=== PATIENT | male | born 1970 | race Caucasian/White ===

== ENCOUNTER → 2022-03-22 | Outpatient (REF) | LOC: M PLAIMG 15:18 | PROVIDERS: ATTEND Internal Medicine | DX: Z11.52 Encounter for screening for COVID-19 (principal) ==

== ENCOUNTER → 2022-05-21 | Outpatient (CLI) | payer BC ==
[2022-05-21 15:55] LABS: BASO # 0.1 10^3/uL (0.0-0.2); BASO % 0.7 % (0.0-1.0); EOS # 0.2 10^3/uL (0.0-0.5); EOS % 2.8 % (0.0-3.0); HEMATOCRIT 45.9 % (42.0-52.0); HEMOGLOBIN 15.7 g/dl (13.5-17.5); LYMPH # 2.5 10^3/uL (1.5-5.0); MEAN CORPUSCULAR HEMOGLOBIN 32.4 pg (27.0-33.0); MEAN CORPUSCULAR HGB CONC 34.2 g/dl (32.0-36.5); MEAN CORPUSCULAR VOLUME 94.6 fl (80.0-96.0); MONO # 0.5 10^3/uL (0.0-0.8); MONO % 5.9 % (2.0-8.0); NEUTROPHILS % 60.2 % (36.0-66.0); PLATELET COUNT, AUTOMATED 174 10^3/uL (150-450); RED BLOOD COUNT 4.85 10^6/uL (4.30-6.10); WHITE BLOOD COUNT 8.3 10^3/uL (4.0-10.0)
[2022-05-21 16:19] LABS: URIC ACID 4.2 MG/DL (3.7-9.2)
[2022-05-21 16:21] LABS: CREATININE, URINE 136.9 MG/DL; MAU/CREAT RATIO 15.3 MCG/MG (0.0-30.0)
[2022-05-21 16:22] LABS: ALBUMIN 3.6 G/DL (3.2-5.2); ALKALINE PHOSPHATASE 120 U/L (46-116); ALT/SGPT 38 U/L (7.0-40); AST/SGOT 24 U/L (<34); BILIRUBIN,TOTAL 0.6 MG/DL (0.3-1.2); BLOOD UREA NITROGEN 14 MG/DL (9-23); CALCIUM LEVEL 9.1 MG/DL (8.5-10.1); CARBON DIOXIDE LEVEL 26 MMOL/L (20-31); CHLORIDE LEVEL 107 MMOL/L (98-107); CHOLESTEROL LEVEL 165 MG/DL (<200); CHOLESTEROL RISK RATIO 2.71 (<5); CREATININE FOR GFR 0.89 MG/DL (0.70-1.30); GLOMERULAR FILTRATION RATE > 60.0 (>56); GLUCOSE, FASTING 152 MG/DL (60-100); HDL CHOLESTEROL 60.8 MG/DL (>40); NON-HDL-C 104 MG/DL; POTASSIUM SERUM 4.2 MMOL/L (3.5-5.1); SODIUM LEVEL 140 MMOL/L (136-145); TRIGLYCERIDES LEVEL 171 MG/DL (<150)
[2022-05-21 16:24] LABS: THYROID STIMULATING HORMONE 1.701 uIU/ML (0.55-4.78)
== END ==
LOC: M LAB 15:04
PROVIDERS: ATTEND Family Medicine
DX: Z12.5 Encounter for screening for malignant neoplasm of prostate (principal); E11.8 Type 2 diabetes mellitus with unspecified complications; I10 Essential (primary) hypertension; E78.2 Mixed hyperlipidemia
CPT/HCPCS: 36415; 80053; 80061; 82043; 84443; 84550; 85025; G0103

== ENCOUNTER → 2023-02-14 | Outpatient (CLI) | payer BC | LOC: M PLALAB 11:34 | PROVIDERS: ATTEND Internal Medicine Hematology | DX: I82.90 Acute embolism and thrombosis of unspecified vein (principal) ==

== ENCOUNTER → 2023-05-03 | Outpatient (CLI) | payer BC | LOC: M CARPUL 10:41 | PROVIDERS: ATTEND Internal Medicine Critical Care Medicine | DX: I26.99 Other pulmonary embolism without acute cor pulmonale (principal) ==

== ENCOUNTER → 2023-05-03 | Outpatient (CLI) | payer BC | LOC: M RAD 10:47 | PROVIDERS: ATTEND Internal Medicine Critical Care Medicine | DX: I26.99 Other pulmonary embolism without acute cor pulmonale (principal) ==

== ENCOUNTER → 2024-01-25 | Outpatient (REF) | payer BC ==
[2024-01-25 04:34] LABS: CREATININE, URINE 59.5 MG/DL; MALB URINE SIEMENS < 3.0 MG/L
[2024-01-25 04:35] LABS: ALBUMIN 3.7 G/DL (3.2-5.2); BILIRUBIN,DIRECT 0.1 MG/DL (<0.4); BILIRUBIN,TOTAL 0.4 MG/DL (0.3-1.2); CHOLESTEROL RISK RATIO 3.37 (<5); HDL CHOLESTEROL 52.8 MG/DL (>40); LDL CHOLESTEROL 81.8 MG/DL (<100); NON-HDL-C 125.2 MG/DL; TOTAL PROTEIN 6.7 G/DL (5.7-8.2)
== END ==
LOC: M LAB REF 03:51
PROVIDERS: ATTEND Family Medicine
DX: E78.2 Mixed hyperlipidemia (principal); E11.69 Type 2 diabetes mellitus with other specified complication

== ENCOUNTER → 2024-07-02 | Outpatient (REF) | payer BC ==
[2024-07-02 04:39] LABS: BASO # 0.1 10^3/uL (0.0-0.2); BASO % 0.7 % (0.0-1.0); EOS # 0.1 10^3/uL (0.0-0.5); EOS % 1.2 % (0.0-3.0); HEMATOCRIT 45.5 % (42.0-52.0); HEMOGLOBIN 15.7 g/dl (13.5-17.5); LYMPH # 3.2 10^3/uL (1.5-5.0); MEAN CORPUSCULAR HEMOGLOBIN 32.4 pg (27.0-33.0); MEAN CORPUSCULAR HGB CONC 34.5 g/dl (32.0-36.5); MONO # 0.7 10^3/uL (0.0-0.8); MONO % 6.2 % (2.0-8.0); NEUTROPHILS # 6.6 10^3/uL (1.5-8.5); NEUTROPHILS % 61.5 % (36.0-66.0); PLATELET COUNT, AUTOMATED 204 10^3/uL (150-450); RED BLOOD COUNT 4.84 10^6/uL (4.30-6.10); WHITE BLOOD COUNT 10.7 10^3/uL (4.0-10.0)
[2024-07-02 05:08] LABS: URIC ACID 4.5 MG/DL (3.7-9.2)
[2024-07-02 05:11] LABS: CHOLESTEROL RISK RATIO 3.88 (<5); HDL CHOLESTEROL 47.9 MG/DL (>40); LDL CHOLESTEROL 82.1 MG/DL (<100); MAGNESIUM LEVEL 1.8 MG/DL (1.8-2.4); NON-HDL-C 138.1 MG/DL; PROSTATIC SPECIFIC AG MONITOR 0.74 NG/ML (< 4.00)
[2024-07-02 05:15] LABS: THYROID STIMULATING HORMONE 1.603 uIU/ML (0.55-4.78); TOTAL 25(OH) VITAMIN D 22.7 NG/ML (20.0-100.0)
[2024-07-02 05:16] LABS: FREE T4 1.06 NG/DL (0.89-1.76)
[2024-07-02 05:18] LABS: FREE T3 3.7 PG/ML (2.3-4.2)
== END ==
LOC: M LAB REF 04:05
PROVIDERS: ATTEND Family Medicine
DX: Z12.5 Encounter for screening for malignant neoplasm of prostate (principal); E78.2 Mixed hyperlipidemia; I10 Essential (primary) hypertension; E11.69 Type 2 diabetes mellitus with other specified complication; K22.9 Disease of esophagus, unspecified

== ENCOUNTER → 2024-12-30 | Outpatient (REF) | payer BC ==
[2024-12-30 09:25] LABS: ALT/SGPT 20.0 U/L (7.0-40); AST/SGOT 20.0 U/L (<34); CHOLESTEROL LEVEL 171.0 MG/DL (<200); CHOLESTEROL RISK RATIO 3.47 (<5); CPK CREATINE PHOSPHOKINASE 100.0 U/L (46-171); LDL CHOLESTEROL 81.0 MG/DL (<100); NON-HDL-C 121.8 MG/DL; TRIGLYCERIDES LEVEL 204.0 MG/DL (<150)
== END ==
LOC: M LAB REF 03:40
PROVIDERS: ATTEND Family Medicine
DX: E78.2 Mixed hyperlipidemia (principal)

== ENCOUNTER → 2025-04-09 | Outpatient (REF) | payer BC ==
[2025-04-09 11:02] LABS: ALT/SGPT 19.0 U/L (7.0-40); AST/SGOT 21.0 U/L (<34); CHOLESTEROL LEVEL 124.0 MG/DL (<200); CHOLESTEROL RISK RATIO 2.39 (<5); CPK CREATINE PHOSPHOKINASE 65.0 U/L (46-171); LDL CHOLESTEROL 48.7 MG/DL (<100); NON-HDL-C 72.3 MG/DL; TRIGLYCERIDES LEVEL 118.0 MG/DL (<150)
== END ==
LOC: M LAB REF 09:43
PROVIDERS: ATTEND Family Medicine
DX: E78.2 Mixed hyperlipidemia (principal)